=== PATIENT | male | born 1980 | race Caucasian/White ===

== ENCOUNTER → 2017-08-27 | Outpatient (CLI) | payer OTHER ==
[~2017-08-27] MED LIST: CIPR-255 PO; LISI-725 PO; PARO1TAB27 PO
== END | disposition home or self-care (01) ==
LOC: C.PATHSPEC 14:56
PROVIDERS: ATTEND Urology
DX: Z30.2 Encounter for sterilization (principal)

== ENCOUNTER 2017-09-06 22:43 | Emergency (ER) | payer OTHER ==
[~2017-09-06] VITALS: Ht 167.6 cm; Wt 88.3 kg
[2017-09-06 22:47] VITALS: TEMP 37; Ht 167.6 cm; Wt 88.3 kg
[2017-09-06] MEDS ORDERED: ONDANSETRON INJ 2 MG/ML 2 ML VIAL IV STA (22:58)
[2017-09-06] MEDS ORDERED: MoRPHine SULFATE 4 MG/ML 1 ML CARP\\VIAL IV PRN (23:00)
--- NOTE | 2017-09-06 23:20 | EMERGENCY ROOM VISIT NOTE ---
History Report prepared by Vijaya: Sherry Lambert Under the Supervision of: Dr. Derik Barron M.D. First contact with patient: 22:53 Chief Complaint: TESTICULAR PAIN Stated Complaint: POST VASECTOMY, SEVERE LEST TESTICAL PAIN History of Present Illness The patient is a 37 year old male who presents to the Emergency Room with complaints of worsening left testicular pain beginning 4 days ago. The patient states that on August 27 he had a vasectomy in an outpatient clinic. He reports that beginning 4 days he had increased pain and swelling in his left testicle. He has been using Tylenol for pain with minimal relief. Today he noted more swelling and rates the pain at a 7/10. He reports having burning with urination , but denies having penile discharge, cough, cold, congestion, vomiting, diarrhea, fevers, and chills. He reports a history of hypertension. Source of History: patient Onset: 4 days ago Position: other (left testicle ) Symptom Intensity: rated at a 7/10 Timing: worsening Associated Symptoms: + urinary symptoms (burning with urination ), No fevers , No chills, No cough, No vomiting, No diarrhea Review of Systems See HPI for pertinent positives & negatives. A total of 10 systems reviewed and were otherwise negative. Past Medical & Surgical Medical Problems: (1) Hypertension Family History No pertinent family history Social History Smoking Status: Never Smoker Marital Status: Housing Status: lives with family Occupation Status: employed Current/Historical Medications Scheduled Ciprofloxacin Hcl (Cipro), 500 MG PO BID Lisinopril (Zestril), 20 MG PO DAILY Paroxetine (Paxil), 20 MG PO DAILY Allergies Coded Allergies: No Known Allergies (Unverified , 09/06/17) Physical Exam Vital Signs Date Time Temp Pulse Resp B/P (MAP) Pulse Ox O2 Delivery O2 Flow Rate FiO2 09/07/17 00:58 78 20 128/77 98 09/07/17 00:15 68 20 127/70 98 Room Air 09/06/17 22:47 37.0 104 18 166/97 98 Room Air Physical Exam GENERAL: Patient is in no acute distress. HEENT: No acute trauma, normocephalic atraumatic, mucous membranes moist, no nasal congestion, no scleral icterus. NECK: No stridor, no adenopathy, no meningismus, trachea is midline. LUNGS: Clear to auscultation bilaterally, no wheeze, no rhonchi, breath sounds equal. HEART: Without murmurs gallops or rubs, regular rate and rhythm. ABDOMEN: Soft, nontender, bowel sounds positive, no hernias, no peritonitis. EXTREMITIES: No cyanosis or edema, full range of motion of all the joints without pain or difficulty, no signs for acute trauma. NEUROLOGIC: Oriented x 3, no acute motor or sensory deficits, no focal weakness. SKIN: No rash, no jaundice, no diaphoresis. GROIN: Circumcised. No scrotal cellulitis. Left testicle and surrounding structures are swollen and tender. Right testicle is normal. Medical Decision & Procedures ER Provider Diagnostic Interpretation: Radiology results as stated below per my review and [employer]. US SCROTAL: No evidence of testicular torsion. Slightly increased vasculature in the left epididymis and testicle compared to the right. Correlate for symptoms suggestive of epididymoorchitis. Trace right hydrocele. Left-sided varicosities. Mild left scrotal edema. Laboratory Results 09/06/17 23:05 Red Blood Count 4.80, Mean Corpuscular Volume 83.5, Mean Corpuscular Hemoglobin 29.8, Mean Corpuscular Hemoglobin Concent 35.7, Mean Platelet Volume 9.6, Neutrophils (%) (Auto) 68.1, Lymphocytes (%) (Auto) 22.6, Monocytes (%) (Auto) 7.4, Eosinophils (%) (Auto) 1.3, Basophils (%) (Auto) 0.2, Neutrophils # (Auto) 6.36, Lymphocytes # (Auto) 2.11, Monocytes # (Auto) 0.69, Eosinophils # (Auto) 0.12, Basophils # (Auto) 0.02 09/06/17 23:05 Test 09/06/17 23:05 09/06/17 23:25 White Blood Count 9.34 K/uL (4.8-10.8) Red Blood Count 4.80 M/uL (4.7-6.1) Hemoglobin 14.3 g/dL (14.0-18.0) Hematocrit 40.1 % (42-52) Mean Corpuscular Volume 83.5 fL (80-100) Mean Corpuscular Hemoglobin 29.8 pg (25-34) Mean Corpuscular Hemoglobin Concent 35.7 g/dl (32-36) Platelet Count 209 K/uL (130-400) Mean Platelet Volume 9.6 fL (7.4-10.4) Neutrophils (%) (Auto) 68.1 % Lymphocytes (%) (Auto) 22.6 % Monocytes (%) (Auto) 7.4 % Eosinophils (%) (Auto) 1.3 % Basophils (%) (Auto) 0.2 % Neutrophils # (Auto) 6.36 K/uL (1.4-6.5) Lymphocytes # (Auto) 2.11 K/uL (1.2-3.4) Monocytes # (Auto) 0.69 K/uL (0.11-0.59) Eosinophils # (Auto) 0.12 K/uL (0-0.5) Basophils # (Auto) 0.02 K/uL (0-0.2) RDW Standard Deviation 36.9 fL (36.4-46.3) RDW Coefficient of Variation 12.1 % (11.5-14.5) Immature Granulocyte % (Auto) 0.4 % Immature Granulocyte # (Auto) 0.04 K/uL (0.00-0.02) Anion Gap 12.0 mmol/L (3-11) Est Creatinine Clear Calc Drug Dose 89.2 ml/min Estimated GFR () 90.8 Estimated GFR (Non- 78.4 BUN/Creatinine Ratio 13.8 (10-20) Calcium Level 7.8 mg/dl (8.5-10.1) Urine Color YELLOW Urine Appearance CLEAR (CLEAR) Urine pH 6.0 (4.5-7.5) Urine Specific [place] 1.019 (1.000-1.030) Urine Protein NEG (NEG) Urine Glucose (UA) NEG (NEG) Urine Ketones NEG (NEG) Urine Occult Blood 1+ (NEG) Urine Nitrite NEG (NEG) Urine Bilirubin NEG (NEG) Urine Urobilinogen NEG (NEG) Urine Leukocyte Esterase SMALL (NEG) Urine WBC (Auto) >30 /hpf (0-5) Urine RBC (Auto) 5-10 /hpf (0-4) Urine Hyaline Casts (Auto) 1-5 /lpf (0-5) Urine Epithelial Cells (Auto) 0-5 /lpf (0-5) Urine Bacteria (Auto) 4+ (NEG) Laboratory results reviewed by me. Medications Administered Medications (Trade) Dose Ordered Sig/Debbi Route Start Time Stop Time Status Last Admin Dose Admin Morphine Sulfate (MoRPHine SULFATE INJ) 4 mg Q15M PRN IV 09/06/17 23:00 09/20/17 22:59 09/06/17 23:22 4 MG Ondansetron HCl (Zofran Inj) 4 mg NOW STAT IV 09/06/17 22:58 09/06/17 23:00 DC 09/06/17 23:22 4 MG Ciprofloxacin (Cipro Tab) 500 mg NOW STAT PO 09/07/17 00:27 09/07/17 00:28 DC 09/07/17 00:34 500 MG Ceftriaxone Sodium (Rocephin Inj) 1 gm NOW STAT IV 09/07/17 00:27 09/07/17 00:28 DC 09/07/17 00:34 1 GM ED Course 2258: Ordered Zofran Inj 4 mg IV. 2300: Ordered Morphine Sulfate 4 mg IV. 2305: The patient was evaluated in room B6. A complete history and physical exam was performed. 2315: Discussed the patient's case. Dr. De La Cruz recommends an ultrasound and lab work to be done. 0027: Ordered Rocephin Inj 1 gm IV, Cipro Tab 500 mg PO. 0032: Reevaluated the patient. Discussed results and discharge instructions: He verbalized understanding and agreement. The patient is ready for discharge. Medical Decision The patient is a 37 year old male who presents to the ED with complaints of left testicular pain. Differential diagnoses considered include hematoma, epididymitis, orchitis, testicular torsion, hernia, cellulitis, and UTI. There is no leukocytosis or concerning anemia. Renal panel testing shows a mild elevation of the blood sugar at about 150, no evidence for renal failure. Urinalysis does suggest infection. Urine culture is pending. Testicular ultrasound shows epididymitis/orchitis on the left. No evidence for testicular torsion. Patient received IV morphine and IV Zofran. He was given IV ceftriaxone and oral Cipro. I discussed the case with urology. The patient is being discharged on Cipro with outpatient follow-up. Patient was encouraged to return if worsening or if not improving. Medication Reconcilliation Current Medication List: was personally reviewed by me Blood Pressure Screening Patient's blood pressure: Elevated blood pressure Blood pressure disposition: Elevated BP felt to be situational Consults Time Called: 2312 Consulting Physician: Dr. De La Cruz- Urology Returned Call: [phone] Discussed the patient's case. Dr. De La Cruz recommends an ultrasound and lab work to be done. Impression Primary Impression: Epididymoorchitis Additional Impression: Status post vasectomy Scribe Attestation The scribe's documentation has been prepared under my direction and personally reviewed by me in its entirety. I confirm that the note above accurately reflects all work, treatment, procedures, and medical decision making performed by me. Departure Information Dispostion Home / Self-Care Prescriptions Ciprofloxacin Hcl (CIPRO) 500 Mg Tab 500 MG PO BID, #20 TAB Prov: Derik Barron M.D. 09/07/17 Referrals No Doctor, Assigned (PCP) Forms HOME CARE DOCUMENTATION FORM, IMPORTANT VISIT INFORMATION, WORK / SCHOOL INSTRUCTIONS Patient Instructions My [facility] Additional Instructions supportive underwear ice as before try and stay off of your feet cipro 2x per day for 10 days otc pain meds return for fever, vomiting or worsening pain follow with urology this week Problem Qualifiers
[2017-09-06 23:22] LABS: BASO % 0.2 %; BASO ABS # 0.02 K/uL (0-0.2); EOS % 1.3 %; EOS ABS # 0.12 K/uL (0-0.5); HEMATOCRIT 40.1 % (42-52); HEMOGLOBIN 14.3 g/dL (14.0-18.0); IG# 0.04 K/uL (0.00-0.02); LYMPH % 22.6 %; LYMPH ABS # 2.11 K/uL (1.2-3.4); MEAN CELL VOLUME 83.5 fL (80-100); MEAN CORPUSCULAR HEMOGLOBIN 29.8 pg (25-34); MEAN CORPUSCULAR HGB CONC 35.7 g/dl (32-36); MEAN PLATELET VOLUME 9.6 fL (7.4-10.4); MONO % 7.4 %; MONO ABS # 0.69 K/uL (0.11-0.59); NEUT % 68.1 %; NEUT ABS # 6.36 K/uL (1.4-6.5); PLATELET COUNT 209 K/uL (130-400); RED CELL DISTRIBUTION WIDTH CV 12.1 % (11.5-14.5); RED CELL DISTRIBUTION WIDTH SD 36.9 fL (36.4-46.3); WHITE BLOOD COUNT 9.34 K/uL (4.8-10.8)
[2017-09-06 23:53] LABS: CALCIUM 7.8 mg/dl (8.5-10.1); CREATININE 1.18 mg/dl (0.60-1.40)
[2017-09-07 00:18] LABS: POTASSIUM 3.7 mmol/L (3.5-5.1)
[2017-09-07] MEDS ORDERED: CEFTRIAXONE SOD INJ 1 GM ADDVIAL IV STA (00:27)
[2017-09-07] MEDS ORDERED: CIPROFLOXACIN 500 MG TAB PO STA (00:27)
[2017-09-07] MEDS ORDERED: CIPR-255 PO (00:33)
[2017-09-07 00:58] VITALS: BP 128/77; PULSE 78; O2SAT 98
--- NOTE | 2017-09-07 06:52 | DIAGNOSTIC IMAGING REPORT ---
(TESTICULAR) SCROTUM-CONT CLINICAL HISTORY: 37 years-old Male with vesectomy, left test pain, swelling. Acute left-sided scrotal pain COMPARISON STUDY: None available TECHNIQUE: Real-time, grayscale, and color Doppler sonography of the testes and scrotum is performed. Images are reviewed in the transverse and longitudinal planes. FINDINGS: RIGHT HEMISCROTUM: The right testis measures 4.1 x 2.0 x 3.1 cm and the parenchyma appears unremarkable. No intratesticular mass is seen. Normal-appearing arterial inflow is present within the right testicle. The right epididymal head appears normal. No varicocele is identified. Trace hydrocele. LEFT HEMISCROTUM: The left testis measures 3.8 x 2.3 x 2.9 cm and the parenchyma appears mildly hypervascular with mild adjacent scrotal wall edema. No intratesticular mass is seen. Normal-appearing arterial inflow is present within the left testicle. The left epididymal head also appears mildly hypervascular and heterogeneous. Left-sided varicocele without large hydrocele identified. IMPRESSION: 1. Mildly increased vascularity of the left testicle and epididymis is suspicious for acute epididymoorchitis. 2. Trace right-sided hydrocele. 3. Left-sided varicocele. The above report was generated using voice recognition software. It may contain grammatical, syntax or spelling errors. Electronically signed by: Bay Campoverde M.D. 09/07/2017 6:51 AM Dictated Date/Time: 09/07/2017 6:47 AM
--- NOTE | 2017-09-10 15:10 | Pharmacy Progress Note ---
ED Pharmacist Culture FollowUp Date of Service: Sep 10, 2017. Patient was sent home with a prescription for ciprofloxacin, which should cover the Enterobacter aerogenes growing from the patient's urine culture.
== END 2017-09-07 00:59 | disposition home or self-care (01) ==
LOC: C.EDB 22:44
DX: N45.3 Epididymo-orchitis (principal); N50.812 Left testicular pain; I86.1 Scrotal varices; Z98.52 Vasectomy status; R30.0 Dysuria; I10 Essential (primary) hypertension